=== PATIENT | female | born 1995 | race Caucasian/White ===

== ENCOUNTER 2018-11-17 07:32 | Day surgery (SDC) | payer OTHER, MEDICAID, SELFPAY ==
[2018-11-04 12:35] VITALS: BMI 23.8
[2018-11-17 07:51] VITALS: BP 117/83; PULSE 92; RESP 18; TEMP 37.3; O2SAT 100; BMI 23.7
[2018-11-17] MEDS: LACTATED RINGERS 1,000 ML 100 ML IV (08:16)
--- NOTE | 2018-11-17 09:10 | PM.PREOP ---
Pre-operative Note Interval Note History & Physical reviewed/Exam performed by Physician: Yes Changes to H&P: No
--- NOTE | 2018-11-17 09:12 | P.HP_ITS ---
History of Present Illness Date Patient Seen: 11/17/18 Time Patient Seen: 09:10 Chief complaint: [id number] Narrative: Patient is a 23-year-old with pelvic pain She has this pain between her periods as well as with her periods. Patient has a family history of endometriosis Patient History Medical History (Updated 10/29/18 @ 20:28 by Bernadette Sow) Heavy menstrual period (Chronic ~2011) Irregular menstrual cycle (Chronic ~2011) Painful menstrual periods (Chronic ~2011) Surgical History (Updated 10/29/18 @ 20:28 by Bernadette Sow) Anesthesia (Resolved) [place] teeth removed (Resolved ~06/02/14) Family History (Updated 10/29/18 @ 20:29 by Bernadette Sow) Father Hypertension Sister Mental health problem Grandfather Colon cancer Hypertension Hyperlipidemia Social History household members: family Smoking Status: Never smoker Family & Social History Family History (Updated 10/29/18 @ 20:29 by Bernadette Sow) Father Hypertension Sister Mental health problem Grandfather Colon cancer Hypertension Hyperlipidemia Social History: household members family Tobacco & Substance use: Smoking Status Never smoker Meds Home Medications Medication Instructions Recorded Confirmed Type levonorgestrel 0.15 mg-ethinyl 1 tab PO DAILY 10/30/18 11/17/18 History estradiol 0.03 mg tablet tramadol 50 mg PO Q6H #20 tab 11/17/18 Rx Allergies Allergy/AdvReac Type Severity Reaction Status Date / Time oxycodone Allergy Severe Swelling Verified 11/17/18 08:11 of Lip/Tongue/Throat Exam Vital Signs (past 8 hours): - 11/17/18 07:51 Temperature 99.1 F Pulse Rate 92 H Respiratory Rate 18 Blood Pressure 117/83 Pulse Oximetry 100 Oxygen Delivery Method Room Air Narrative Exam Narrative: HEENT: No thyromegaly, no anterior cervical or supraclavicular lymphadenopathy. Lungs:Clear to auscultation bilaterally, no wheezes. Cardiovascular: Regular rate and rhythm, no murmurs, rubs, or gallops. Abdomen: No scars. No hepatosplenomegaly. No masses palpable. External genitalia: Normal Vagina: Normal Cervix: Normal Bimanual exam: 5 Week size uterus. Mobile. Rectal: No masses. Assessment & Plan Assessment & Plan narrative: Assessment: 23-year-old 0 with pelvic pain and dysmenorrhea Family history of endometriosis Plan: Diagnostic laparoscopy with possible fulguration of endometriosis The risks, benefits, and alternatives to the procedure were explained to the patient. The risks including bleeding, infection, injury to the bowel, bladder, or ureters. She understands these risks and agrees to proceed. A full PAR-Q was held and consent form was signed Time Spent With Patient Time with patient: 15-24 minutes
--- NOTE | 2018-11-17 09:16 | SUR.OPER ---
Lithotomy on padded OR bed, head on pillow, arms secured on padded arm boards at <90 degrees abduction. Legs secured in padded yellow fins stirrups.
[2018-11-17] MEDS: BUPIVACAINE 0.5% W/ EPI (PF) VIAL 30 ML INJ (10:00)
[2018-11-17 10:21] VITALS: BP 113/63; PULSE 140; RESP 20; TEMP 36.3
[2018-11-17 10:26] VITALS: BP 112/64; PULSE 129; RESP 12; O2SAT 100
--- NOTE | 2018-11-17 10:29 | SUR.PHASEI ---
Dr. Peres spoke to patient, HR coming down- Dr. Peres has been observing
[2018-11-17 10:32] VITALS: BP 120/72; PULSE 110; RESP 12; O2SAT 99
--- NOTE | 2018-11-17 10:32 | SUR.PHASEI ---
Awake, HOB elevated, no pain/nausea, ice chips and water given. Pleasant and smiling
[2018-11-17 10:36] VITALS: BP 115/77; PULSE 105; RESP 13; O2SAT 98
--- NOTE | 2018-11-17 10:38 | SUR.PHASEII ---
Tolerating PO well, tolerating mild discomfort, preparing to transfer. HR NSRat 92
[2018-11-17] MEDS: TRAMADOL 50 MG TABLET 100 MG PO (11:01)
[2018-11-17] MEDS: DOCUSATE 250 MG CAPSULE PO (11:01)
[2018-11-17 11:04] VITALS: BP 109/70; PULSE 85; RESP 16; TEMP 36.8; O2SAT 100
--- NOTE | 2018-11-17 11:16 | SUR.PHASEII ---
Tolerating PO well, feels ready to go home, clothes given. Mom at bedside. No drainage on pad or surg sites.
--- NOTE | 2018-11-27 16:28 | PM.GYNOP.1 ---
Operative Date/Time/Diagnoses Date of procedure: 11/17/18 Time of procedure: 10:15 Pre-op diagnosis: Pelvic pain Dysmenorrhea Family h/o endometriosis Post-op diagnosis: same Procedure: Procedures Operation Date: 11/17/18 09:00 Actual Procedures Side Surgeon p Dx Laparoscopy Not Applicable Tamar Solorio MD Indications: Pelvic pain Dysmenorrhea Family history of endometriosis Surgeon: Tamar Solorio Anesthesia Type: General Operative Notes Findings: Normal uterus, tubes, and ovaries Normal liver and gallbladder Normal appendix Closure Type: primary Specimen(s): none Estimated blood loss (mL): 5 Blood products transfused: none Procedure in detail: After informed consent was obtained, the patient was taken to the operating room where she was placed in the dorsal supine position. After adequate general endotracheal anesthesia was achieved, she was placed in the dorsal lithotomy position, and prepped and draped in the usual sterile fashion. A time-out was performed. A bivalve speculum was placed into the vagina and the anterior lip of the cervix was grasped with a single-tooth tenaculum. The cervical os was sequentially dilated until the Zumi uterine manipulator could pass easily into the endometrial cavity. The single-tooth tenaculum was removed from the anterior lip of the cervix. The bivalve speculum was removed from the vagina. Attention was then turned to the abdomen where 6 cc of 0.5% Marcaine with epinephrine were injected in the umbilical fold. A 5 mm incision was made. The Veress needle was placed into the peritoneal cavity, and its placement confirmed by aspiration drop test. The abdominal cavity was insufflated with 3.2 L of CO2. The Veress needle was removed, and a 5 mm trocar was placed without difficulty. A second 5 mm incision was made on the patient's left side midway between the pubic symphysis and umbilicus after 6 cc of 0.5% Marcaine with epinephrine were injected. A 5 mm trocar was placed under direct visualization. The probe was used to identify both tubes and ovaries which were normal. The appendix was identified and was normal. The liver and gallbladder were examined and were found to be normal. There was no evidence of endometriosis in the anterior or posterior cul-de-sacs, or ovarian fossa. The instruments were removed from the abdomen. The CO2 was allowed to escape. The incisions were repaired with 4 0 undyed Vicryl in a subcuticular fashion. Steri-Strips, 2 x 2, and op site were placed. The Zumi uterine manipulator was removed from the uterus. Sponge, lap, and instrument counts were correct x2. The patient tolerated the procedure well, and was taken to PACU in stable condition. Complications: none Post-operative Condition: stable Disposition: PACU Plan for aftercare: Home after recovery
== END 2018-11-17 11:23 | disposition home or self-care (01) ==
PROVIDERS: Visit Provider Obstetrics & Gynecology
PROC: (CPT 49320; principal; 2018-11-17 09:00)
DX: N94.6 Dysmenorrhea, unspecified (principal); N94.10 Unspecified dyspareunia
CPT/HCPCS: 49320; J0330; J1100; J1885; J2250; J2405; J2704; J3010